=== PATIENT | female | born 1995 | race Caucasian/White ===

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

== ENCOUNTER 2018-08-16 13:05 | Inpatient (IN) | payer BC, OTHER ==
[2018-08-16 15:22] LABS: ABS Basophils 0 10^3/ul (0-0.2); ABS Eosinophils 0.2 10^3/ul (0-0.6); ABS Lymphocytes 1.5 10^3/ul (1.0-4.8); ABS Monocytes 0.8 10^3/ul (0-0.8); ABS Neutrophils 9.5 10^3/ul (1.5-7.7); ABS Nucleated RBC 0 10^3/ul; Eosinophil % 1.6 %; Hematocrit 41 % (33-41); Hemoglobin 13.7 g/dL (12.0-16.0); Lymphocyte % 12.3 %; Mean Corpuscular HGB Conc 34 g/dL (31-36); Mean Corpuscular Hemoglobin 29 pg (27-31); Mean Corpuscular Volume 88 fL (80-97); Mean Platelet Volume 8.1 fL (7.4-10.4); Nucleated Red Blood Cells % 0; Platelet Count 337 10^3/uL (150-450); Red Blood Count 4.67 10^6 /uL (3.70-4.87); Red Cell Distribution Width 14 % (10.5-15)
[2018-08-16 15:56] LABS: ALT 15 U/L (7-52); AST 16 U/L (13-39); Albumin 4.3 g/dL (3.2-5.2); Albumin/Globulin Ratio 1.3 (1-3); Alkaline Phosphatase 66 U/L (34-104); Anion Gap 7 mmol/L (2-11); BUN/Creatinine Ratio 11.8 (8-20); Blood Urea Nitrogen 9 mg/dL (6-24); C Reactive Protein 156.55 mg/L (<8.01); CO2 Carbon Dioxide 28 mmol/L (22-32); Calcium 9.5 mg/dL (8.6-10.3); Chloride 102 mmol/L (101-111); EGFR African American 117.4 (>60); Globulin 3.2 g/dL (2-4); Glucose 84 mg/dL (70-100); Potassium 3.9 mmol/L (3.5-5.0); Sodium 137 mmol/L (135-145); Total Protein 7.5 g/dL (6.4-8.9)
[2018-08-16 17:03] LABS: HCG Pregnancy < 0.60 mIU/mL
[2018-08-16] MEDS ORDERED: NS 0.9% 1000 ML** 2,000 ML IV ONE (18:29)
[2018-08-16] MEDS ORDERED: Acetaminophen TAB* 325 MG PO ONE (18:30)
--- NOTE | 2018-08-16 18:55 | ED ---
Abdominal Pain/Female - HPI Summary HPI Summary: This patient is a 22 year old F presenting to [facility] accompanied by her mother with a chief complaint of worsening diffuse abd pain since 07/27/2018. The patient rates the pain 8/10 in severity. Patient reports fever, bloody stool, nausea, and pain with breathing. Patient denies vomiting or sore throat. Last night the patient was diagnosed with colitis at [facility] and sent home. The pain started a month ago in her pelvic area and has spread upward. For the last two days she cannot be touched in her midsection without severe pain. The bloody stool has been present for a week. The fever started yesterday , after her appointment in [place]. She has not recently used antibiotics. She took Tylenol and Vicodin at 09:00. No SHx EtOH use, tobacco use. RX control. Vitals in the room: 119 bpm, BP 125/90. - History of Current Complaint Chief Complaint: EDAbdPain Stated Complaint: GI PAIN PER PT Time Seen by Provider: 08/16/18 18:07 Hx Obtained From: Patient Hx Last Menstrual Period: ~08/08/16 Onset/Duration: Gradual Onset, Lasting Weeks, Still Present Timing: Constant Severity Initially: Mild Severity Currently: Severe Pain Intensity: 8 Pain Scale Used: 0-10 Numeric Location: Diffuse Associated Signs and Symptoms: Positive: Fever, Blood in Stool, Nausea. Negative: Vomiting Allergies/Adverse Reactions: Allergies Allergy/AdvReac Type Severity Reaction Status Date / Time aripiprazole Allergy Vomiting Verified 08/16/18 13:16 doxycycline Allergy Vomiting Verified 08/16/18 13:16 erythromycin base Allergy Rash Verified 08/16/18 13:16 Penicillins Allergy Rash Verified 08/16/18 13:16 Home Medications: Home Medications Ciprofloxacin HCl [Cipro] 500 mg PO BID 08/16/18 [History Confirmed 08/16/18] Ondansetron TAB* [Zofran 4 MG Tab*] 4 mg PO Q8H PRN 08/16/18 [History Confirmed 08/16/18] metroNIDAZOLE * [Flagyl] 500 mg PO TID 08/16/18 [History Confirmed 08/16/18] PMH/Surg Hx/FS Hx/Imm Hx Respiratory History: Reports: Hx Asthma History: Denies: Hx Dialysis Infectious Disease History: No Infectious Disease History: Denies: Traveled Outside the [place] in Last 30 Days - Family History Known Family History: Negative: Diabetes - Social History Alcohol Use: Occasionally Substance Use Type: Reports: None Smoking Status (MU): Never Smoked Tobacco Review of Systems Positive: Fever Negative: Sore Throat Positive: Other - pain with breathing Positive: Abdominal Pain, Nausea, Other - bloody stool. Negative: Vomiting All Other Systems Reviewed And Are Negative: Yes Physical Exam - Summary Physical Exam Summary: Appearance: Well appearing, no pain distress Skin: warm, dry, reflects adequate perfusion Head/face: normal Eyes: EOMI, KEATON ENT: normal Neck: supple, non-tender Respiratory: CTA, breath sounds present Cardiovascular: Tachycardic, pulses symmetrical Abdomen: Diffuse tenderness Musculoskeletal: normal, strength/ROM intact Neuro: normal, sensory motor intact, A&Ox3 Triage Information Reviewed: Yes Vital Signs On Initial Exam: Initial Vitals Temp Pulse Resp BP Pulse Ox 98.3 F 86 16 143/93 100 08/16/18 13:09 08/16/18 13:09 08/16/18 13:09 08/16/18 13:09 08/16/18 13:09 Vital Signs Reviewed: Yes Diagnostics - Vital Signs Vital Signs Temp Pulse Resp BP Pulse Ox 08/16/18 18:48 102.5 F 08/16/18 18:13 101.3 F 08/16/18 18:00 111 9 99 08/16/18 17:56 119 125/90 98 08/16/18 17:55 115 96 08/16/18 15:20 100.4 F 95 17 132/86 100 08/16/18 13:09 98.3 F 86 16 143/93 100 - Laboratory Lab Results: Lab Results 08/16/18 08/16/18 08/16/18 Range/Units 15:15 15:15 15:15 WBC 12.0 H (3.5-10.8) 10^3/uL RBC 4.67 (3.70-4.87) 10^6 /uL Hgb 13.7 (12.0-16.0) g/dL Hct 41 (33-41) % MCV 88 (80-97) fL MCH 29 (27-31) pg MCHC 34 (31-36) g/dL RDW 14 (10.5-15) % Plt Count 337 (150-450) 10^3/uL MPV 8.1 (7.4-10.4) fL Neut % (Auto) 78.8 % Lymph % (Auto) 12.3 % Drew % (Auto) 6.9 % Eos % (Auto) 1.6 % Baso % (Auto) 0.4 % Absolute Neuts (auto) 9.5 H (1.5-7.7) 10^3/ul Absolute Lymphs (auto) 1.5 (1.0-4.8) 10^3/ul Absolute Monos (auto) 0.8 (0-0.8) 10^3/ul Absolute Eos (auto) 0.2 (0-0.6) 10^3/ul Absolute Basos (auto) 0 (0-0.2) 10^3/ul Absolute Nucleated RBC 0 10^3/ul Nucleated RBC % 0 Sodium 137 (135-145) mmol/L Potassium 3.9 (3.5-5.0) mmol/L Chloride 102 (101-111) mmol/L Carbon Dioxide 28 (22-32) mmol/L Anion Gap 7 (2-11) mmol/L BUN 9 (6-24) mg/dL Creatinine 0.76 (0.51-0.95) mg/dL Est GFR ( Amer) 117.4 (>60) Est GFR (Non-Af Amer) 97.0 (>60) BUN/Creatinine Ratio 11.8 (8-20) Glucose 84 (70-100) mg/dL Lactic Acid 0.9 (0.5-2.0) mmol/L Calcium 9.5 (8.6-10.3) mg/dL Total Bilirubin 0.40 (0.2-1.0) mg/dL AST 16 (13-39) U/L ALT 15 (7-52) U/L Alkaline Phosphatase 66 (34-104) U/L C-Reactive Protein 156.55 H (<8.01) mg/L Total Protein 7.5 (6.4-8.9) g/dL Albumin 4.3 (3.2-5.2) g/dL Globulin 3.2 (2-4) g/dL Albumin/Globulin Ratio 1.3 (1-3) Lipase 20 (11.0-82.0) U/L Beta HCG, Quant < 0.60 mIU/mL 03/29/19 Range/Units 18:08 WBC (3.5-10.8) 10^3/uL RBC (3.70-4.87) 10^6 /uL Hgb (12.0-16.0) g/dL Hct (33-41) % MCV (80-97) fL MCH (27-31) pg MCHC (31-36) g/dL RDW (10.5-15) % Plt Count (150-450) 10^3/uL MPV (7.4-10.4) fL Neut % (Auto) % Lymph % (Auto) % Drew % (Auto) % Eos % (Auto) % Baso % (Auto) % Absolute Neuts (auto) (1.5-7.7) 10^3/ul Absolute Lymphs (auto) (1.0-4.8) 10^3/ul Absolute Monos (auto) (0-0.8) 10^3/ul Absolute Eos (auto) (0-0.6) 10^3/ul Absolute Basos (auto) (0-0.2) 10^3/ul Absolute Nucleated RBC 10^3/ul Nucleated RBC % Sodium (135-145) mmol/L Potassium (3.5-5.0) mmol/L Chloride (101-111) mmol/L Carbon Dioxide (22-32) mmol/L Anion Gap (2-11) mmol/L BUN (6-24) mg/dL Creatinine (0.51-0.95) mg/dL Est GFR ( Amer) (>60) Est GFR (Non-Af Amer) (>60) BUN/Creatinine Ratio (8-20) Glucose (70-100) mg/dL Lactic Acid 0.9 (0.5-2.0) mmol/L Calcium (8.6-10.3) mg/dL Total Bilirubin (0.2-1.0) mg/dL AST (13-39) U/L ALT (7-52) U/L Alkaline Phosphatase (34-104) U/L C-Reactive Protein (<8.01) mg/L Total Protein (6.4-8.9) g/dL Albumin (3.2-5.2) g/dL Globulin (2-4) g/dL Albumin/Globulin Ratio (1-3) Lipase (11.0-82.0) U/L Beta HCG, Quant mIU/mL Result Diagrams: 08/16/18 15:15 08/16/18 15:15 Lab Statement: Any lab studies that have been ordered have been reviewed, and results considered in the medical decision making process. Abdominal Pain Fem Course/Dx - Course Course Of Treatment: This patient is a 22 year old F presenting to [facility] accompanied by her mother with a chief complaint of worsening diffuse abd pain since 07/27/2018. The patient rates the pain 8/10 in severity. Patient reports fever, bloody stool, nausea, and pain with breathing. Patient denies vomiting or sore throat. CXR reveals, per ED physician, negative findings. Bloodwork/ UA obtained. In the ED course the patient was given Acetaminophen and IV fluids. We discussed patient care with Dr. Britton, hospitalist, and they recommended admission. - Diagnoses Differential Diagnosis: Positive: Irritable Bowel Syndrome, Other - colitis/ sepsis Provider Diagnoses: Abdominal pain, Sepsis, Colitis - Provider Notifications Discussed Care Of Patient With: Celine Britton Time Discussed With Above Provider: 20:10 Instructed by Provider To: Admit As Inpatient Discharge - Sign-Out/Discharge Documenting (check all that apply): Patient Departure - admission Patient Received Moderate/Deep Sedation with Procedure: No - Discharge Plan Condition: Fair Disposition: ADMITTED TO [facility] Referrals: Daniel Vasquez MD [Primary Care Provider] - - Billing Disposition and Condition Condition: FAIR Disposition: Admitted to [facility] - Attestation Statements Document Initiated by Pattieibe: Yes Documenting Scribe: Kelvin Gloria Provider For Whom Pattieibbritton is Documenting (Include Credential): Julian Hughes MD Scribe Attestation: Kelvin Rodriguez, taqueriaed for Julian Hughes MD on 08/16/18 at 202. Scribe Documentation Reviewed: Yes Provider Attestation: The documentation as recorded by the Kelvin kwan accurately reflects the service I personally performed and the decisions made by Julian case MD Status of Scribe Document: Viewed
[2018-08-16 20:31] LABS: Urine Appearance Turbid; Urine Bacteria 1+ (Absent); Urine Bilirubin Negative (Negative); Urine Blood 1+ (Negative); Urine Color Amber; Urine Glucose Negative (Negative); Urine Ketones 2+ (Negative); Urine Nitrite Negative (Negative); Urine Protein 1+(30 mg/dL) (Negative); Urine Red Blood Cell 2+(6-10/hpf) (Absent); Urine Specific Gravity 1.025 (1.010-1.030); Urine Squamous Epithelial Cell Present (Absent); Urine Urobilinogen Negative (Negative); Urine White Blood Cell 3+(>20/hpf) (Absent)
[2018-08-16 20:49] LABS: Influenza A Molecular NEGATIVE (Negative); Influenza B Molecular NEGATIVE (Negative)
[2018-08-16] MEDS ORDERED: Lactated Ringers 1000 ML Bag* 1,000 ML IV.FLUID IV ONE (21:00)
[2018-08-16] MEDS ORDERED: Acetaminophen TAB* 325 MG PO PRN (21:04)
[2018-08-16] MEDS ORDERED: Ciprofloxacin 400MG IVPREMIX(* 400 MG/200 ML BAG ONE (21:24)
[2018-08-16] MEDS: Ciprofloxacin 400MG IVPREMIX(* 400 MG/200 ML BAG IVPB SCH (21:42)
[2018-08-16] MEDS ORDERED: diPHENhydraMINE PO* 25 MG PO PRN (22:29)
[2018-08-16] MEDS ORDERED: metroNIDAZOLE IV 500 MG/100ML* 500 MG/100 ML BAG IVPB SCH (23:00)
--- NOTE | 2018-08-16 23:23 | HP ---
CC: Dr. Chidi De La Rosa; Dr. Vasquez * HISTORY AND PHYSICAL: DATE OF ADMISSION: 08/16/18 TIME OF EVALUATION: 8:50 p.m. CONSULTING COP WINDER: Dr. Chidi De La Rosa. PRIMARY CARE PROVIDER: Dr. Vasquez. CHIEF COMPLAINT: Abdominal pain. HISTORY OF PRESENT ILLNESS: Ms. Platt is a 22-year-old female with no significant past medical history who presented to the emergency room with complaints of diffuse abdominal pain. She states that since July 25, she has had episodes of abdominal pain. In the beginning, it was just hypogastric, crampy in nature and she thought it was a menstrual cramp, but it continued and it became diffuse. She states that she has always some degree of pain, worsened with "waves" of more severe pain, 10/ 10. She endorses nausea but no vomiting. Her appetite is preserved but she states that she cannot eat as much as she would like because of the pain. She had formed stools with some blood in it starting last week and earlier this week, she had episodes of diarrhea with blood, reason why she went to [facility] yesterday. At this point, we have records of her CT of the abdomen and pelvis that showed mild sigmoid colitis without abscess, ascites, or pneumoperitoneum. The patient was prescribed Cipro, Flagyl, and Vicodin and the plan was for her to be seen by GI as outpatient. She was able to schedule an appointment with Dr. Fabian at [place] for August 27, but because her pain is too severe and she had no improvement with the medications prescribed, she came to the emergency room for further evaluation. She states that yesterday she started to have some dysuria and also chills and today in the emergency room she was found to be febrile. She denies vomiting, chest pain, palpitations, shortness of breath, weight loss. PAST MEDICAL HISTORY: None. MEDICATION LIST: 1. Ondansetron 4 mg p.o. q.8 hours p.r.n. nausea. 2. Ciprofloxacin 500 mg p.o. b.i.d. 3. Metronidazole 500 mg p.o. t.i.d. ALLERGIES: With ARIPIPRAZOLE and DOXYCYCLINE the patient had vomiting and with PENICILLIN and ERYTHROMYCIN the patient had a rash. FAMILY HISTORY: Her mother has a history of precancerous polyps, she has had multiple removed and her grandmother had colon cancer. SOCIAL HISTORY: The patient denies tobacco, alcohol, and drug use. Surrogate decision maker is her mother, Santos Mcbride, phone number is [phone]. REVIEW OF SYSTEMS: A 14-point review of systems was performed and all the pertinent negatives and positives are in the HPI. PHYSICAL EXAMINATION GENERAL: The patient is a young lady, lying in the ED stretcher, in no acute distress, watching TV. VITAL SIGNS: Temperature 100.6, heart rate is 118, respiratory rate is 14, oxygen saturation is 96% on room air, blood pressure is 109/67. HEENT: Pupils are equal. Moist mucous membranes. CHEST: Breath sounds bilaterally with no added sounds. CVS: Normal S1, S2. Regular rate and rhythm. ABDOMEN: Soft with mild diffuse tenderness. No guarding, no rebound. Bowel sounds are present. EXTREMITIES: No edema. NEUROLOGIC: She is alert and oriented x3. Able to move all 4 extremities. LABORATORY AND IMAGING DATA: The patient had a CBC that showed a WBC of 12, hemoglobin of 13.7, hematocrit of 41, platelets of 337 with 78% neutrophils. Chemistry showed a sodium of 137, potassium of 3.9, chloride of 102, bicarb of 28, BUN of 9, creatinine of 0.7, glucose of 84. Lactic acid was 0.9 x2. Calcium 9.5. LFTs are normal. CRP is 156. HCG is negative. Urinalysis showed 1+ protein, 2+ ketones, 1+ blood, 3+ LE, 3+ wbc's, 2+ rbc's, squamous epithelial cells, and 1+ bacteria. Chest x-ray was not yet officially read but to my read shows no acute pulmonary disease. ASSESSMENT AND PLAN: Ms. Platt is a 22-year-old female with no significant past medical history, who presents to the emergency room with complaints of 3 weeks of progressive crampy abdominal pain associated with bloody stools with workup done at [facility] suggestive of colitis. 1. Sepsis. The patient meets sepsis criteria with fever and tachycardic. Although her colitis can be infection, I believe the source of her sepsis is urinary tract infection at this time. The patient received IV fluids. Blood cultures were sent in the emergency room and her lactic acid is normal. 2. Colitis. This could be infectious but her history is more suggestive of inflammatory bowel disease. She will be on clear liquids at this point and since her CT showed sigmoid colitis, maybe just a flexible sigmoidoscopy may be enough for her workup. We will continue her on Cipro and Flagyl for now. She will receive pain medications. A gastroenterology consult was requested with Dr. De La Rosa. She will be kept on clear liquids for now. 3. Urinary tract infection. The patient will be continued on ciprofloxacin. Unfortunately, she is allergic to PENICILLIN. 4. DVT prophylaxis. The patient has a score of 0 on the DVT prophylaxis risk assessment guide and she will have SCDs while in bed. 5. Code status is full. TIME SPENT: Approximately 45 minutes was spent with the patient and mother on interview, medical records review, physical examination to complete the admission, more than half the time was spent [id number] with the patient and coordination of care. [id number]/[facility] #: [id number] MTDD
[2018-08-16] MEDS: PROCHLORPERAZINE INJ 5 MG/ML 2 ML VIAL IV PRN (23:40)
[2018-08-16] MEDS: Morphine INJ* 2 MG/ML 1 ML SYRINGE (TWO MG - NEW SYRINGE VERSION) IV PRN (23:41)
[2018-08-17] MEDS: metroNIDAZOLE IV 500 MG/100ML* 500 MG/100 ML BAG IVPB SCH ×3 (01:00→17:29)
--- NOTE | 2018-08-17 02:59 | PN ---
Sepsis Event Evaluation Date of Evaluation: 08/17/18 Time of Evaluation: 02:59 Vital Signs - Last 12 Hours: Vital Signs - 12 hr Temp Pulse Resp BP Pulse Ox 08/17/18 02:38 16 08/17/18 01:50 18 08/16/18 23:50 11 08/16/18 23:41 20 08/16/18 23:15 97.2 F 91 20 104/61 100 08/16/18 23:00 17 08/16/18 22:56 99 21 113/65 97 08/16/18 22:27 97 20 106/61 98 08/16/18 22:24 99.1 F 94 18 111/66 96 08/16/18 22:00 95 14 96 08/16/18 21:56 94 17 111/66 98 08/16/18 21:26 102 19 108/66 98 08/16/18 21:00 108 21 97 08/16/18 20:56 101 17 118/72 98 08/16/18 20:27 110 21 118/64 98 08/16/18 20:10 100.6 F 08/16/18 20:00 121 14 96 08/16/18 19:56 117 19 109/67 97 08/16/18 19:27 115 20 109/62 98 08/16/18 19:00 108 14 99 08/16/18 18:56 105 10 122/85 97 08/16/18 18:48 102.5 F 08/16/18 18:47 112 9 116/72 95 08/16/18 18:13 101.3 F 08/16/18 18:00 111 9 99 08/16/18 17:56 119 125/90 98 08/16/18 17:55 115 96 08/16/18 15:20 100.4 F 95 17 132/86 100 Lactic Acid: 08/16/18 08/16/18 15:15 18:08 Lactic Acid 0.9 0.9 Assess/Plan/Problems-Billing Assessment:
[2018-08-17] MEDS: Morphine INJ* 2 MG/ML 1 ML SYRINGE (TWO MG - NEW SYRINGE VERSION) IV PRN ×3 (03:47→21:32)
[2018-08-17 05:07] LABS: ABS Basophils 0 10^3/ul (0-0.2); ABS Eosinophils 0.2 10^3/ul (0-0.6); ABS Lymphocytes 1.8 10^3/ul (1.0-4.8); ABS Monocytes 0.9 10^3/ul (0-0.8); ABS Neutrophils 6.6 10^3/ul (1.5-7.7); ABS Nucleated RBC 0 10^3/ul; Eosinophil % 1.9 %; Hematocrit 35 % (33-41); Hemoglobin 11.9 g/dL (12.0-16.0); Mean Corpuscular HGB Conc 34 g/dL (31-36); Mean Corpuscular Hemoglobin 30 pg (27-31); Mean Corpuscular Volume 88 fL (80-97); Mean Platelet Volume 8.2 fL (7.4-10.4); Nucleated Red Blood Cells % 0; Platelet Count 240 10^3/uL (150-450); Red Blood Count 4.03 10^6 /uL (3.70-4.87); Red Cell Distribution Width 13 % (10.5-15); White Blood Count 9.6 10^3/uL (3.5-10.8)
[2018-08-17 05:16] LABS: BUN/Creatinine Ratio 7.4 (8-20); C Reactive Protein 157.91 mg/L (<8.01); Calcium 8.4 mg/dL (8.6-10.3); EGFR African American 174.2 (>60); EGFR Non-African American 143.9 (>60); Potassium 3.7 mmol/L (3.5-5.0)
[2018-08-17] MEDS: PROCHLORPERAZINE INJ 5 MG/ML 2 ML VIAL IV PRN (09:42)
[2018-08-17] MEDS: Ciprofloxacin 400MG IVPREMIX(* 400 MG/200 ML BAG IVPB SCH ×2 (10:27→21:33)
[2018-08-17] MEDS: NS 0.9% 1000 ML** 1,000 ML IV SCH (12:46)
[2018-08-17] MEDS: Ondansetron INJ* 2 MG/ML VIAL IV PRN ×2 (13:16→22:55)
--- NOTE | 2018-08-17 15:01 | CONS ---
CC: Dr. Vasquez * CONSULTATION REPORT: DATE OF CONSULT: 08/17/18 REQUESTING PHYSICIAN: Dr. Villavicencio. INDICATION: Colitis. NARRATIVE: Ms. Platt is a very pleasant 22-year-old female who states that her symptoms began on 07/25/18. They began with nausea and mild generalized abdominal pain. She states that she thought she was having her menstrual cycle. This continued for a number of days. It did not get better and then on this past Sunday, she had loose stools and diarrhea. She was running fever. She went to [facility]. She had a CT there, which showed left-sided sigmoid colitis. She was started on Cipro and Flagyl for suspected infectious colitis and was sent home. She continued to feel nauseated and have pain, it was not getting any better, presented to [facility]. At that time, she had blood work and a UA. The UA was positive for urinary tract infection and she was admitted to the hospital for suspected colitis and UTI, was started on Cipro and Flagyl. She denies any uveitis, occasional oral ulcers. She has chronic back pain and knee pain. No abnormal rashes. No family history of inflammatory bowel disease. No infectious contacts. No recent antibiotic use. MEDICATIONS: Include: 1. Cipro. 2. Flagyl. 3. Zofran. ALLERGIES: DOXYCYCLINE, PENICILLIN, ERYTHROMYCIN. FAMILY HISTORY: Significant for colorectal cancer in mom and grandmother. SOCIAL HISTORY: No tobacco or alcohol use. REVIEW OF SYSTEMS: Twelve systems were reviewed, other than that mentioned in the HPI were unremarkable. PHYSICAL EXAM: Temperature is 99.5, T-max is 102.4; blood pressure is 103/55; O2 sat is 98%; respiratory rate of 16; pulse is 103. General: Well-appearing female, lying flat in bed, alert, oriented, pleasant, fluent. HEENT: Mucous membranes are dry without lesions, ulcers, or exudates. Neck is supple. Trachea is midline. Head is normocephalic, atraumatic. Heart: Regular rate and rhythm, tachy. Lungs: Clear to auscultation bilaterally. No wheezes, rales , or rhonchi. Abdomen: Positive bowel sounds. Soft. Mild left-sided tenderness and epigastric tenderness. No right-sided tenderness. No rebound. No guarding. No masses. Bowel sounds are present, however, slightly hypoactive. Skin is warm and dry. DIAGNOSTIC STUDIES/LAB DATA: Labs of note: White count is 9.6, down from 12; hemoglobin is 11.9; platelets are normal. Chemistry shows BUN of 4, creatinine of 0.54. C-reactive protein is 157.91. UA is positive for blood, 3+ leukocyte esterase, 3+ wbc's, 1+ bacteria. Her rapid influenza A and B are negative. She has a CT from [place], which shows sigmoid colitis. ASSESSMENT AND PLAN: This is a 22-year-old female with colitis and a urinary tract infection. Regarding her colitis, this could be either infectious or inflammatory. At this point, I am inoffensive to which one it could be. She is feeling better at this point. She is being treated for infectious colitis. What I have recommended is, to continue with the antibiotics. We are going to start fluids on her and antinausea medicine. In the next 24 to 48 hours, she likely will need a flexible sigmoidoscopy to evaluate her sigmoid colon to see if this will help determine whether or not this is more of an infectious or an inflammatory bowel disease. No family history of inflammatory bowel disease. No extraintestinal manifestations of inflammatory bowel disease. Currently, she is stable and we will continue to follow along very closely. [id number]/[facility] #: [id number] RADHA
--- NOTE | 2018-08-17 15:13 | PN ---
Subjective Date of Service: 08/17/18 Interval History: Ms. Platt is feeling somewhat better today. Abd pain is improved. Rates the pain a 6/10 prior to morphine and a 4/10 after morphine. She is still having significant cramping with BMs. No bloody stool. Nausea while eating, but no vomiting and she has been able to eat. Denies CP, SOB. Nursing reports tachycardia up into the 140s while ambulating to the bathroom, but has been asymptomatic. Family History: Unchanged from Admission Social History: Unchanged from Admission Past Medical History: Unchanged from Admission Objective Active Medications: Acetaminophen (Tylenol Tab*) 650 mg PO Q6H PRN pain/fever Diphenhydramine HCl (Benadryl Po*) 25 mg PO BEDTIME PRN INSOMNIA Ciprofloxacin/Dextrose (Cipro 400 Mg Ivpremix(*)) 400 mg in 200 mls @ 200 mls/ hr IVPB Q12H LUCHO Metronidazole/Sodium Chloride (Flagyl 500 Mg Ivpb*) 500 mg in 100 mls @ 100 mls /hr IVPB 0100,0900,1700 LUCHO Sodium Chloride (Ns 0.9% 1000 Ml) 1,000 mls @ 125 mls/hr IV PER RATE LUCHO Morphine Sulfate (Morphine Inj (Syringe))*) 1 mg IV Q2H PRN SEVERE PAIN Ondansetron HCl (Zofran Inj*) 4 mg IV Q6H PRN NAUSEA Prochlorperazine Edisylate (Compazine Inj*) 5 mg IV Q6H PRN NAUSEA/VOMITING Vital Signs - 8 hr 08/17/18 08/17/18 08/17/18 07:33 10:00 11:03 Temperature 99.5 F Pulse Rate 103 Respiratory 16 18 16 Rate Blood Pressure 103/55 (mmHg) O2 Sat by Pulse 98 Oximetry Oxygen Devices in Use Now: None Appearance: Young adult female laying in bed in NAD Eyes: No Scleral Icterus Ears/Nose/Mouth/Throat: Mucous Membranes Moist Neck: NL Appearance and Movements; NL JVP, Trachea Midline Respiratory: Symmetrical Chest Expansion and Respiratory Effort, Clear to Auscultation Cardiovascular: NL Sounds; No Murmurs; No JVD, RRR Abdominal: - - Diffusely tender to palpation, normoactive BS Extremities: No Edema Skin: No Rash or Ulcers Neurological: Alert and Oriented x 3 Lines/Tubes/Other Access: Clean, Dry and Intact Peripheral IV Nutrition: Taking PO's Result Diagrams: 08/17/18 04:45 08/17/18 04:45 Assess/Plan/Problems-Billing Assessment: Ms. Platt is a 22 yo F with no significant PMH who presented to the [facility] ED the day prior to admission with c/o bloody stool and was found on CT to have colitis and prescribed cipro/flagyl; she presented to the ED here with c/o worsening pain that she was unable to manage at home. - Patient Problems (1) Colitis Code(s): K52.9 - NONINFECTIVE GASTROENTERITIS AND COLITIS, UNSPECIFIED Comment : - Differentials include infectious vs inflammatory - Symptoms improving on antibiotics - CT scan from [facility] read as mild signoid colitis without abscess, ascites, or pneumoperitoneum - Appreciate GI consult; recommends continuing current treatment, and will likely need flex sig on Sunday - Clear liquid diet - Continue cipro, Flagyl, morphine, Zofran, Compazine (2) UTI (urinary tract infection) Comment: - Presented with chills and dysuria - Urine culture pending - Continue cipro (3) Sepsis Comment: - Met criteria on admission with leukocytosis, tachycardia, and fever - Source is suspected to be UTI, not colitis - Resume IVF d/t tachycardia and continue abx as above (4) DVT prophylaxis Comment: - SCDs (5) Full code status Code(s): Z78.9 - OTHER SPECIFIED HEALTH STATUS Comment: Status and Disposition: Inpatient for colitis with likely flex sig on Sunday. Anticipate d/c home when medically stable. Attending: Hermelindo Bai
[2018-08-18] MEDS: NS 0.9% 1000 ML** 1,000 ML IV SCH (00:30)
[2018-08-18] MEDS: metroNIDAZOLE IV 500 MG/100ML* 500 MG/100 ML BAG IVPB SCH ×2 (00:30→08:29)
[2018-08-18] MEDS: PROCHLORPERAZINE INJ 5 MG/ML 2 ML VIAL IV PRN (08:06)
[2018-08-18 08:18] LABS: ABS Basophils 0 10^3/ul (0-0.2); ABS Eosinophils 0.3 10^3/ul (0-0.6); ABS Lymphocytes 1.5 10^3/ul (1.0-4.8); ABS Monocytes 0.7 10^3/ul (0-0.8); ABS Neutrophils 5.3 10^3/ul (1.5-7.7); ABS Nucleated RBC 0 10^3/ul; Eosinophil % 3.8 %; Hematocrit 39 % (33-41); Lymphocyte % 19.5 %; Mean Corpuscular HGB Conc 34 g/dL (31-36); Mean Corpuscular Hemoglobin 29 pg (27-31); Mean Corpuscular Volume 88 fL (80-97); Mean Platelet Volume 8.2 fL (7.4-10.4); Nucleated Red Blood Cells % 0; Platelet Count 292 10^3/uL (150-450); Red Blood Count 4.41 10^6 /uL (3.70-4.87); Red Cell Distribution Width 14 % (10.5-15); White Blood Count 7.9 10^3/uL (3.5-10.8)
[2018-08-18] MEDS: Ciprofloxacin 400MG IVPREMIX(* 400 MG/200 ML BAG IVPB SCH (10:04)
[2018-08-18] MEDS: Morphine INJ* 2 MG/ML 1 ML SYRINGE (TWO MG - NEW SYRINGE VERSION) IV PRN (10:27)
[2018-08-18] MEDS ORDERED: Morphine INJ* 2 MG/ML 1 ML SYRINGE (TWO MG - NEW SYRINGE VERSION) IV PRN (10:37)
[2018-08-18] MEDS: Ondansetron INJ* 2 MG/ML VIAL IV PRN (12:31)
[2018-08-18 15:29] VITALS: BP 113/73
--- NOTE | 2018-08-19 01:28 | DS ---
CC: Dr. Daniel Vasquez; Dr. De La Rosa * DISCHARGE SUMMARY: DATE OF ADMISSION: 08/16/18 DATE OF DISCHARGE: 08/18/18 PRIMARY CARE PROVIDER: Dr. Daniel Vasquez. ATTENDING PHYSICIAN: Dr. Hermelindo Bai * (dictated by Malorie Motta NP) PRIMARY DIAGNOSES: 1. Colitis, presumed infectious. 2. Urinary tract infection. 3. Sepsis. SECONDARY DIAGNOSIS: None. STUDIES WHILE IN THE HOSPITAL: 1. Chest x-ray on 08/16/18 reads as no evidence for acute intrathoracic disease. HISTORY OF PRESENT ILLNESS AND HOSPITAL COURSE: Ms. Platt is a 22-year-old female with no significant past medical history who presented to the emergency room on 08/16/18 with complaints of abdominal pain. Please see the history and physical by Dr. Villavicencio for complete summary of the events leading up to this hospitalization. In short, patient had been having abdominal pain since , it was progressively worsening. She was seen in the [facility] on 08/15/18, at which point she had a CT scan which read as mild "sigmoid colitis without abscess or pneumoperitoneum." The patient was prescribed Cipro and Flagyl and was instructed to follow up with GI as an outpatient. She did schedule an appointment with Dr. Fabian at [facility] for , though ultimately on 08/16/18, the pain became too severe and so she presented to the emergency room. Earlier that day, she also had developed some dysuria and chills. In the emergency room, she was noted to be febrile. She was also noted to have tachycardia and leukocytosis and so did meet sepsis criteria. She did have a urinalysis which was indicative of a urinary tract infection and was admitted by the hospitalist service. She was continued on Cipro and Flagyl. She was not started on any additional antibiotics for her urinary tract infection as that would be covered by the Cipro. The patient's pain and nausea continued to improve gradually. She had been tolerating clear liquids and was having some nausea, although no vomiting. The patient was seen in consultation by Dr. De La Rosa on 08/17/18, at which point, he felt as though her colitis could be either infectious or inflammatory and recommended continuing current antibiotic regimen. He suggested a flexible sigmoidoscopy for Sunday. The patient was agreeable to this plan. As of today , 08/18/18, the patient reports feeling markedly better. She has essentially no abdominal pain or tenderness and very mild nausea. She was able to tolerate a regular diet for lunch today. Dr. De La Rosa did see the patient again today and advised that because her symptoms have resolved, she is stable for discharge home with outpatient followup, this colitis is presumed to be infectious as it improved with antibiotics. As of today, the patient's vital signs have normalized and her white blood cell count has normalized. She reports having a bowel movement this morning which was formed and there was no evidence of blood. She is agreeable to returning home with plans for outpatient followup. Ms. Platt is stable for discharge today. Vital signs are as follows: Temperature 96.7, heart rate 86, respiratory rate 16, oxygen saturation 100% on room air, blood pressure 113/73. DISCHARGE MEDICATIONS: New medications: 1. Ondansetron 4 mg p.o. q.8 hours p.r.n. nausea and vomiting. Continued medications: 1. Ciprofloxacin 500 mg p.o. b.i.d. x8 days. 2. Metronidazole 500 mg p.o. t.i.d. x8 days. DISCHARGE PLAN: Ms. Platt will be discharged home. Activity will be as tolerated. Diet will be regular as tolerated. The patient has been provided with work and school notes and will return to work and class on Sunday, 08/21. Medications are as noted above. The patient had previously been prescribed Cipro and Flagyl from the [facility] and so did have those medications with her in her room. I have advised her that she should take 8 days of these antibiotics to complete a total of 10 days of antibiotic therapy. I indicated to her that she does have more than an 8-day supply, though she should only take an 8- day supply of these medications and then discard the rest. I did send in a prescription for Zofran per her request. She will need to follow up with her primary care provider in 4 to 7 days. She will also need to follow up with a lot associate as she likely will still need a flex sig. She has been advised that she can follow up with Dr. Fabian at [facility] or is welcome to follow up with Dr. De La Rosa in his office. She is instructed to return to the emergency room or nearest hospital for any worsening of symptoms, shortness of breath, lightheadedness, dizziness, chest discomfort, high fevers, chills, night sweats, loss of consciousness, or any other worrisome signs or symptoms. DISCHARGE CONDITION: Good. DISCHARGE DISPOSITION: Home. This is a summarized report of a complex medical history and hospital stay. For further details, please see the entire medical record. TIME SPENT: Approximately 45 minutes was spent on this discharge. MALORIE MOTTA, BRUISE TRIMMER [id number]/CPS #: [id number] RADHA
== END 2018-08-18 16:25 | disposition home or self-care (01) | DRG 720 ==
LOC: ED 13:05 → MED 20:49 → OBSVTOIN 08-17 15:21
PROVIDERS: ADMIT Internal Medicine; ATTEND Internal Medicine
DX: A41.9 Sepsis, unspecified organism (principal); N39.0 Urinary tract infection, site not specified; A09 Infectious gastroenteritis and colitis, unspecified; J45.909 Unspecified asthma, uncomplicated; Z88.1 Allergy status to other antibiotic agents; Z88.0 Allergy status to penicillin; Z88.8 Allergy status to other drugs, medicaments and biological substances; Z72.89 Other problems related to lifestyle; Z80.0 Family history of malignant neoplasm of digestive organs
CPT/HCPCS: 36415; 71045; 80048; 80053; 81003; 81015; 82272; 83605; 83690; 84702; 85025; 86140; 87040; 87045; 87046; 87086; 87899; 99285; A9270-GY; G0378; J0744; J0780; J2270; J2405; J3490

== ENCOUNTER 2018-09-22 21:45 | Emergency (ER) | payer BC ==
[2018-09-22] MEDS ORDERED: NS 0.9% 1000 ML** 1,000 ML IV ONE (22:18)
[2018-09-22 22:41] LABS: ABS Basophils 0.1 10^3/ul (0-0.2); ABS Eosinophils 0.2 10^3/ul (0-0.6); ABS Lymphocytes 3.1 10^3/ul (1.0-4.8); ABS Monocytes 0.7 10^3/ul (0-0.8); ABS Neutrophils 4.5 10^3/ul (1.5-7.7); Eosinophil % 2.7 %; Hematocrit 40 % (35-47); Hemoglobin 13.3 g/dL (12.0-16.0); Lymphocyte % 36.8 %; Mean Corpuscular HGB Conc 34 g/dL (31-36); Mean Corpuscular Hemoglobin 30 pg (27-31); Mean Corpuscular Volume 88 fL (80-97); Nucleated Red Blood Cells % 0.1; Platelet Count 278 10^3/uL (150-450); Red Blood Count 4.49 10^6 /uL (3.70-4.87); Red Cell Distribution Width 14 % (10.5-15); White Blood Count 8.6 10^3/uL (3.5-10.8)
--- NOTE | 2018-09-22 22:57 | ED ---
GI/ HPI - HPI Summary HPI Summary: 22-year-old female presents with abdominal pain for the past week. States started feeling as period cramps has been is persisting. her period resolved. States her periods are normally regular and only has pain the first day. She denies any abdominal vaginal discharge. No urinary symptoms. She states has chills but no known fevers. She states this feels similar to when she had colitis in the past and went septic. She denies any flank pain. No nausea vomiting. No diarrhea. No chest pain shortness breath or cough. no other symptoms. - History of Current Complaint Chief Complaint: EDAbdPain Time Seen by Provider: 09/22/18 22:11 Stated Complaint: "ABDOMINAL PAIN PER PT" Hx Last Menstrual Period: ~08/08/16 Pain Intensity: 5 - Allergy/Home Medications Allergies/Adverse Reactions: Allergies Allergy/AdvReac Type Severity Reaction Status Date / Time aripiprazole Allergy Vomiting Verified 09/22/18 21:49 doxycycline Allergy Vomiting Verified 09/22/18 21:49 erythromycin base Allergy Rash Verified 09/22/18 21:49 lactose Allergy Nausea Verified 09/22/18 21:49 Penicillins Allergy Rash Verified 09/22/18 21:49 pomegranate Allergy Rash And Verified 09/22/18 21:49 Itching PMH/Surg Hx/FS Hx/Imm Hx Endocrine/Hematology History: Denies: Hx Anticoagulant Therapy Respiratory History: Reports: Hx Asthma History: Denies: Hx Dialysis Sensory History: Reports: Hx Contacts or Glasses Denies: Hx Deafness, Hx Hearing Aid Opthamlomology History: Reports: Hx Contacts or Glasses Psychiatric History: Reports: Hx Anxiety Infectious Disease History: No Infectious Disease History: Denies: Traveled Outside the [place] in Last 30 Days - Family History Known Family History: Negative: Diabetes - Social History Alcohol Use: None Substance Use Type: Reports: None Smoking Status (MU): Never Smoked Tobacco Review of Systems Positive: Chills. Negative: Fever Negative: Chest Pain Negative: Shortness Of Breath Positive: Abdominal Pain. Negative: Vomiting, Diarrhea, Nausea All Other Systems Reviewed And Are Negative: Yes Physical Exam Triage Information Reviewed: Yes Vital Signs On Initial Exam: Initial Vitals Temp Pulse Resp BP Pulse Ox 99.1 F 76 18 118/79 98 09/22/18 21:46 09/22/18 21:46 09/22/18 21:46 09/22/18 21:46 09/22/18 21:46 Vital Signs Reviewed: Yes Appearance: Positive: Well-Appearing Skin: Positive: Warm, Dry Head/Face: Positive: Normal Head/Face Inspection Eyes: Positive: Normal, Conjunctiva Clear ENT: Positive: Pharynx normal Respiratory/Lung Sounds: Positive: Clear to Auscultation, Breath Sounds Present Cardiovascular: Positive: Normal, RRR Abdomen Description: Positive: Soft, Other: - tenderness lower abd Bowel Sounds: Positive: Present Pelvic Exam: Positive: Speculum Exam Normal, Bimanual Exam Normal, No Cerv. Motion Tender, Discharge - white curd like discharge Musculoskeletal: Positive: Normal Neurological: Positive: Normal Psychiatric: Positive: Normal Diagnostics - Vital Signs Vital Signs Temp Pulse Resp BP Pulse Ox 09/22/18 21:46 99.1 F 76 18 118/79 98 - Laboratory Lab Results: Lab Results 09/22/18 Range/Units 22:35 WBC 8.6 (3.5-10.8) 10^3/uL RBC 4.49 (3.70-4.87) 10^6 /uL Hgb 13.3 (12.0-16.0) g/dL Hct 40 (35-47) % MCV 88 (80-97) fL MCH 30 (27-31) pg MCHC 34 (31-36) g/dL RDW 14 (10.5-15) % Plt Count 278 (150-450) 10^3/uL MPV 8.0 (7.4-10.4) fL Neut % (Auto) 52.0 % Lymph % (Auto) 36.8 % [place] % (Auto) 7.8 % Eos % (Auto) 2.7 % Baso % (Auto) 0.7 % Absolute Neuts (auto) 4.5 (1.5-7.7) 10^3/ul Absolute Lymphs (auto) 3.1 (1.0-4.8) 10^3/ul Absolute Monos (auto) 0.7 (0-0.8) 10^3/ul Absolute Eos (auto) 0.2 (0-0.6) 10^3/ul Absolute Basos (auto) 0.1 (0-0.2) 10^3/ul Absolute Nucleated RBC 0.0 10^3/ul Nucleated RBC % 0.1 Result Diagrams: 09/22/18 22:35 09/22/18 22:35 Lab Statement: Any lab studies that have been ordered have been reviewed, and results considered in the medical decision making process. - CT abd CT Interpretation Completed By: Radiologist Summary of CT Findings: IMPRESSION: Mild fecal stasis in the colon. Probable right adnexal cyst which may be normal. for age. No evidence of enteric obstruction or obstructive uropathy. No acute. intra-abdominal or pelvic process. Additional nonemergent findings as. described above. Re-Evaluation - Re-Evaluation First Eval Re-Evaluation Time: 23:10 Comment: performed pelvic GIGU Course/Dx - Course Course Of Treatment: 22-year-old female presents with abdominal pain for the past week. States started feeling as period cramps has been is persisting. her period resolved. States her periods are normally regular and only has pain the first day. She denies any abdominal vaginal discharge. No urinary symptoms. She states has chills but no known fevers. She states this feels similar to when she had colitis in the past and went septic. She denies any flank pain. No nausea vomiting. No diarrhea. No chest pain shortness breath or cough. no other symptoms. On exam has tenderness in right and left lower quadrant. wbc normal. crp normal. pelvic has white curd like discharge. will treat as yeast infection with diflucain will wait for final cultures as patient has history of yeast infection. no CMT tenderness. urine shows possible infection so will treat with bactrim. CT shows fecal statis so will treat with colace. also has right ovarian cyst. told follow up with primary. patient understand and agrees with plan. - Diagnoses Differential Diagnoses - Female: Colitis, Pelvic Inflammatory Disease, Urinary Tract Infection Provider Diagnoses: Constipation, UTI (urinary tract infection), Ovarian cyst Discharge - Sign-Out/Discharge Documenting (check all that apply): Patient Departure Patient Received Moderate/Deep Sedation with Procedure: No - Discharge Plan Condition: Good Disposition: HOME Prescriptions: Docusate CAP* [Colace Cap*] 100 mg PO DAILY #14 cap Sulfamethox/Trimethoprim DS* [Bactrim DS 800/160 TAB*] 1 tab PO BID #9 tab Patient Education Materials: Constipation (ED), Urinary Tract Infection in Women (ED) Referrals: Daniel Vasquez MD [Primary Care Provider] - Additional Instructions: Take Bactrim twice a day for 5 days, first dose given in ED take colace once a day drink plenty of fluids Follow up with primary in 7 days Return to ED if develop fever or any new or worsening symptoms - Billing Disposition and Condition Condition: GOOD Disposition: Home
[2018-09-22 22:58] LABS: ALT 14 U/L (7-52); AST 16 U/L (13-39); Albumin 4.2 g/dL (3.2-5.2); Albumin/Globulin Ratio 1.6 (1-3); Alkaline Phosphatase 57 U/L (34-104); Anion Gap 3 mmol/L (2-11); BUN/Creatinine Ratio 11.8 (8-20); Blood Urea Nitrogen 8 mg/dL (6-24); C Reactive Protein < 1.00 mg/L (<8.01); CO2 Carbon Dioxide 27 mmol/L (22-32); Calcium 9.6 mg/dL (8.6-10.3); Chloride 108 mmol/L (101-111); EGFR African American 133.5 (>60); EGFR Non-African American 110.3 (>60); Globulin 2.7 g/dL (2-4); Glucose 95 mg/dL (70-100); Potassium 4.5 mmol/L (3.5-5.0); Sodium 138 mmol/L (135-145); Total Protein 6.9 g/dL (6.4-8.9)
[2018-09-22 23:05] LABS: HCG Pregnancy < 0.60 mIU/mL
[2018-09-22] MEDS ORDERED: Fluconazole 150 MG TAB PO ONE (23:11)
[2018-09-22 23:56] LABS: Urine Appearance Cloudy; Urine Bacteria Absent (Absent); Urine Bilirubin Negative (Negative); Urine Blood 1+ (Negative); Urine Color Yellow; Urine Glucose Negative (Negative); Urine Ketones Negative (Negative); Urine Nitrite Negative (Negative); Urine Protein Negative (Negative); Urine Red Blood Cell Trace(0-2/hpf) (Absent); Urine Specific Gravity 1.011 (1.010-1.030); Urine Squamous Epithelial Cell Present (Absent); Urine Urobilinogen Negative (Negative); Urine White Blood Cell Trace(0-5/hpf) (Absent)
[2018-09-23] MEDS ORDERED: Iohexol 300* (CONTRAST) 10 ML SDV IV ONE (00:51)
[2018-09-23] MEDS ORDERED: Sulfamethox/Trimethoprim DS 800/160* TAB PO ONE (02:22)
[2018-09-23 02:48] VITALS: BP 127/63
[2018-09-23 14:37] LABS: Neisseria gonorrhoeae (GC) RNA Negative (Negative)
[2018-09-23 14:52] LABS: Trichomonas vaginalis Result Negative (Negative)
--- NOTE | 2018-09-24 14:51 | PN ---
Progress Note - Progress Note Date of Service: 09/22/18 Note: Vaginal culture positive for missy. Pt. was treated with diflucan in the ER. No further treatment needed at this time.
== END 2018-09-23 02:47 | disposition home or self-care (01) ==
LOC: ED 21:45
DX: K59.00 Constipation, unspecified (principal); N39.0 Urinary tract infection, site not specified; N83.209 Unspecified ovarian cyst, unspecified side; J45.909 Unspecified asthma, uncomplicated; F41.9 Anxiety disorder, unspecified; Z88.8 Allergy status to other drugs, medicaments and biological substances; Z88.0 Allergy status to penicillin; Z88.3 Allergy status to other anti-infective agents
CPT/HCPCS: 36415; 74177; 80053; 81003; 81015; 83605; 83690; 84702; 85025; 86140; 87086; 87088; 87480; 87491; 87510; 87591; 87661; 96360; 99284; A9270-GY; Q9967

== ENCOUNTER 2019-02-18 13:52 | Emergency (ER) | payer BC ==
[2019-02-18 14:12] VITALS: BP 112/69
[2019-02-18] MEDS ORDERED: Ibuprofen TAB* 600 MG PO ONE (14:18)
--- NOTE | 2019-02-18 14:25 | UC ---
Throat Pain/Nasal [place] HPI - HPI Summary HPI Summary: SORE THROAT X 2 DAYS PAIN IS 6 OUT OF 10 , WORSE WITH EATING BETTER WITH TYLENOL + FEVER, CHILLS, FATIGUE, BODY ACHES MILD COUGH , MILD NASAL CONGESTION - History of Current Complaint Chief Complaint: UCGeneralIllness Stated Complaint: SORE THROAT BODYACHES COUGH CONGESTION FEVER Time Seen by Provider: 02/18/19 14:14 Hx Obtained From: Patient Hx Last Menstrual Period: 01/2019 ?: No Onset/Duration: Gradual Onset, Lasting Days - 2, Still Present Severity: Severe Pain Intensity: 7 Cough: Nonproductive Associated Signs & Symptoms: Positive: Fever. Negative: Sinus Discomfort, Nasal Discharge, Rash - Allergies/Home Medications Allergies/Adverse Reactions: Allergies Allergy/AdvReac Type Severity Reaction Status Date / Time aripiprazole Allergy Vomiting Verified 02/18/19 14:09 doxycycline Allergy Vomiting Verified 02/18/19 14:09 erythromycin base Allergy Rash Verified 02/18/19 14:09 lactose Allergy Nausea Verified 02/18/19 14:09 Penicillins Allergy Rash Verified 02/18/19 14:09 pomegranate Allergy Rash And Verified 02/18/19 14:09 Itching PMH/Surg Hx/FS Hx/Imm Hx Previously Healthy: Yes Other History Of: Negative For: Anticoagulant Therapy - Surgical History Surgical History: None - Family History Known Family History: Negative: Diabetes - Social History Alcohol Use: Occasionally Substance Use Type: None Smoking Status (MU): Light Every Day Tobacco Smoker Type: eCigarettes - Immunization History Most Recent Influenza Vaccination: never Most Recent Pneumonia Vaccination: never Vaccination Up to Date: Yes Review of Systems All Other Systems Reviewed And Are Negative: Yes Constitutional: Positive: Fever, Chills, Fatigue Skin: Positive: Negative Eyes: Positive: Negative ENT: Positive: Sore Throat Respiratory: Positive: Cough Cardiovascular: Positive: Negative Musculoskeletal: Positive: Arthralgia, Myalgia Is Patient Immunocompromised?: No Physical Exam Triage Information Reviewed: Yes Appearance: Well-Appearing, Well-Nourished, Pain Distress Vital Signs: Initial Vital Signs Temp 101.4 F 02/18/19 14:09 Pulse 113 02/18/19 14:09 Resp 18 02/18/19 14:09 BP 112/69 02/18/19 14:09 Pulse Ox 98 02/18/19 14:09 Vital Signs Reviewed: Yes Eye Exam: Normal Eyes: Positive: Conjunctiva Clear ENT: Positive: Normal ENT inspection, Hearing grossly normal, Pharyngeal erythema, Tonsillar swelling, Tonsillar exudate Neck: Positive: Supple, Nontender, No Lymphadenopathy Respiratory: Positive: Chest non-tender, Lungs clear, Normal breath sounds Cardiovascular: Positive: Tachycardia Abdominal Exam: Normal Abdomen Description: Positive: Nontender, Soft. Negative: CVA Tenderness (R), CVA Tenderness (L), Distended, Guarding Bowel Sounds: Positive: Present Skin Exam: Normal Throat Pain/Nasal Course/Dx - Differential Dx/Diagnosis Provider Diagnosis: Pharyngitis Discharge ED - Sign-Out/Discharge Documenting (check all that apply): Patient Departure All imaging exams completed and their final reports reviewed: No Studies - Discharge Plan Condition: Stable Disposition: HOME Prescriptions: Azithromycin TAB* [Zithromax TAB (Z-IKER) 250 mg #6 tabs] 2 tab PO .TODAY, THEN 1 DAILY #1 iker Patient Education Materials: Pharyngitis (ED) Forms: *School Release, *Work Release Referrals: Dnaiel Vasquez MD [Primary Care Provider] - If Needed - Billing Disposition and Condition Condition: STABLE Disposition: Home
== END 2019-02-18 14:26 | disposition home or self-care (01) ==
LOC: UCCORT 13:52
DX: J02.9 Acute pharyngitis, unspecified (principal); F17.290 Nicotine dependence, other tobacco product, uncomplicated; Z88.8 Allergy status to other drugs, medicaments and biological substances; Z88.1 Allergy status to other antibiotic agents; Z88.0 Allergy status to penicillin; Z91.018 Allergy to other foods; Z91.011 Allergy to milk products
CPT/HCPCS: 99212; A9270-GY; G0463